=== PATIENT | male | born 1975 | race Caucasian/White ===

== ENCOUNTER 2018-02-02 09:17 | Emergency (ER) | payer OTHER ==
[2018-02-02] MEDS: HYDROCODONE/APAP (5/325) TAB PO (12:01)
== END 2018-02-02 12:06 | disposition home or self-care (01) ==
LOC: FTE 09:17
DX: R51 Headache (principal); R42 Dizziness and giddiness
CPT/HCPCS: 70450; 93005; 99284-25